=== PATIENT | male | born 1985 | race African-American/Black ===

== ENCOUNTER 2017-06-04 13:05 | Emergency (ER) | payer MEDICAID ==
[~2017-06-04] VITALS: Ht 162.6 cm; Wt 66.8 kg
[~2017-06-04 13:05] MED LIST: NOCURR
[2017-06-04 13:44] VITALS: BP 148/81
== END 2017-06-04 14:41 | disposition home or self-care (01) ==
LOC: EMS 13:06
DX: R21 Rash and other nonspecific skin eruption (principal); F17.210 Nicotine dependence, cigarettes, uncomplicated; Z91.018 Allergy to other foods
CPT/HCPCS: 99281